=== PATIENT | male | born 1975 | race Caucasian/White ===

== ENCOUNTER 2022-06-20 19:29 | Emergency (ER) | payer SELFPAY ==
[2022-06-20] MEDS ORDERED: Fluorescein Opthalmic Strip ONE (19:39)
[2022-06-20] MEDS ORDERED: Proparacaine 0.5% Opth 15 ML BOT ONE (19:39)
== END 2022-06-20 19:59 | disposition home or self-care (01) ==
LOC: NAV ERS 19:29
DX: S05.02XA Injury of conjunctiva and corneal abrasion without foreign body, left eye, initial encounter (principal); I10 Essential (primary) hypertension; X58.XXXA Exposure to other specified factors, initial encounter
CPT/HCPCS: 99283